=== PATIENT | male | born 1970 | race Caucasian/White ===

== ENCOUNTER 2020-10-23 19:14 | Emergency (ER) | payer BC ==
[2020-10-23] MEDS ORDERED: Dextrose 50% Abboject 50 ML SYRINGE SLOW IVP PRN (20:24)
[2020-10-23] MEDS ORDERED: Ondansetron ODT 4 MG TAB PO PRN (20:24)
[2020-10-23] MEDS ORDERED: Dextrose 5% in Water 1,000 ML IV PRN (20:24)
[2020-10-23] MEDS ORDERED: Acetaminophen 500 MG TAB PO PRN (20:27)
[2020-10-23] MEDS ORDERED: hydrALAZINE 20 MG/ML VIAL SLOW IVP PRN (20:28)
== END 2020-10-23 22:08 | disposition home or self-care (01) ==
LOC: ERS 19:14
DX: S06.9X0A Unspecified intracranial injury without loss of consciousness, initial encounter (principal); F17.290 Nicotine dependence, other tobacco product, uncomplicated; V09.9XXA Pedestrian injured in unspecified transport accident, initial encounter
CPT/HCPCS: 99284